=== PATIENT | male | born 1980 | race Caucasian/White ===

== ENCOUNTER 2018-05-26 11:16 | Day surgery (SDC) | payer OTHER ==
[2018-05-26] MEDS ORDERED: Sodium Chloride 0.9% 1,000 ML IV ONE (11:28)
[2018-05-26] MEDS ORDERED: Ondansetron 4 MG/2 ML SDV IVPUSH ONE (11:28)
[2018-05-26] MEDS ORDERED: Sodium Chloride 0.9% 2.5 ML Syringe FLUSH PRN ×2 (11:29→13:33)
[2018-05-26] MEDS ORDERED: Glucagon,Human Recombinant 1 MG Vial IVPUSH ONE (11:29)
[2018-05-26] MEDS ORDERED: Sodium Chloride 0.9% 10 ML Syringe FLUSH PRN ×2 (11:29→13:33)
--- NOTE | 2018-05-26 11:32 | EDM.PDOC ---
ED HPI GENERAL MEDICAL PROBLEM - General Chief Complaint: Gastrointestinal Problem Stated Complaint: FOOD STUCK IN THROAT Time Seen by Provider: 05/26/18 11:24 - History of Present Illness INITIAL COMMENTS - FREE TEXT/NARRATIVE: HISTORY AND PHYSICAL: History of present illness: The patient is a 38-year-old male who presents with a piece of roast beef stuck in his esophagus 9 PM last evening. The patient has had this happen many times before but is only required endoscopy 2 times previously last time was about 5- 6 years ago. He was told by one physician that he had strictures and would need stretching periodically and the last time he had endoscopy that surgeon disagreed and said that he should just she was food smaller. The patient denies any other symptomatology such as fevers chills chest pain shortness of breath or abdominal complaints. He has had nausea and the urge to vomit but has not actually vomited. The patient cannot tolerate anything by mouth and has been spitting since 9 PM this evening. He waited this long because he said that in the past and has if he waits it will pass spontaneously and when it did not he came here. The patient says that he has a headache she feels like he is getting dehydrated. Review of systems: As per history of present illness and below otherwise all systems reviewed and negative. Past medical history: As per history of present illness and as reviewed below otherwise noncontributory. Surgical history: As per history of present illness and as reviewed below otherwise noncontributory. Social history: No reported history of drug or alcohol abuse. Family history: As per history of present illness and as reviewed below otherwise noncontributory. Physical exam: General: Well-developed well-nourished obese man who is nontoxic and speaking clearly in the ED but is actively spitting saliva. HEENT: Atraumatic, normocephalic, negative for conjunctival pallor or scleral icterus, mucous membranes moist, throat clear, neck supple, nontender, trachea midline. Lungs: Clear to auscultation, breath sounds equal bilaterally, chest nontender. There is no wheezing or stridor Heart: S1S2, regular rate and rhythm no overt murmurs Abdomen: Soft, nondistended, nontender. Hypoactive bowel sounds Pelvis: Deferred Genitourinary: Deferred. Rectal: Deferred. Extremities: Atraumatic, full range of motion without defects or deficits Neurovascular unremarkable. Neuro: Awake, alert, oriented. Cranial nerves II through XII unremarkable. Cerebellum unremarkable. Motor and sensory unremarkable throughout. Exam nonfocal. Diagnostics: None Therapeutics: IV fluids Zofran and glucagon Toradol, Protonix 1228: The patient tells me that he does not feel any better and still feels a foreign body in his esophagus and can not tolerate his saliva. I will go ahead and contact our surgeon acquisition associate Dr. Heller. The patient and at bedside were informed that there is another OR case going on and that he would follow. The case was discussed with Dr. Heller at 1231 and she will come in to evaluate the patient . 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 Impression: Esophageal food impaction Definitive disposition and diagnosis as appropriate pending reevaluation and review of above. - Related Data Allergies Allergy/AdvReac Type Severity Reaction Status Date / Time No Known Allergies Allergy Verified 05/26/18 11:28 Home Meds: Home Meds . [No Known Home Meds] 05/26/18 [History] ED ROS GENERAL - Review of Systems Review Of Systems: ROS reveals no pertinent complaints other than HPI. ED EXAM, GENERAL - Physical Exam Exam: See Below (See dictation) Course - Vital Signs Last Recorded V/S: Last Vital Signs Temp 36.2 C 05/26/18 11:25 Pulse 107 H 05/26/18 11:25 Resp 18 05/26/18 11:25 BP 155/117 H 05/26/18 11:25 Pulse Ox 97 05/26/18 11:25 - Orders/Labs/Meds Orders: Active Orders 24 hr Category Date Time Status Lactated Ringers [Ringers, Lactated] 1,000 ml Med 05/26/18 12:45 Active IV ASDIRECTED Sodium Chloride 0.9% [Saline Flush] Med 05/26/18 11:29 Active 10 ml FLUSH ASDIRECTED PRN Sodium Chloride 0.9% [Saline Flush] Med 05/26/18 11:29 Active 2.5 ml FLUSH ASDIRECTED PRN Saline Lock Insert [OM.PC] Stat Oth 05/26/18 11:28 Ordered Medication Orders Lactated Ringer's (Ringers, Lactated) 1,000 mls @ 150 mls/hr IV ASDIRECTED THOMAS Sodium Chloride (Saline Flush) 10 ml FLUSH ASDIRECTED PRN PRN Reason: Keep Vein Open Last Admin: 05/26/18 11:54 Dose: 10 ml Sodium Chloride (Saline Flush) 2.5 ml FLUSH ASDIRECTED PRN PRN Reason: Keep Vein Open Last Admin: 05/26/18 11:54 Dose: 2.5 ml Meds: Medications Generic Name Dose Route Start Last Admin Trade Name Freq PRN Reason Stop Dose Admin Lactated Ringer's 1,000 mls @ 150 mls/hr 05/26/18 12:45 Ringers, Lactated IV ASDIRECTED THOMAS Sodium Chloride 10 ml 05/26/18 11:29 05/26/18 11:54 Saline Flush FLUSH 10 ml ASDIRECTED PRN Administration Keep Vein Open Sodium Chloride 2.5 ml 05/26/18 11:29 05/26/18 11:54 Saline Flush FLUSH 2.5 ml ASDIRECTED PRN Administration Keep Vein Open Discontinued Medications Generic Name Dose Route Start Last Admin Trade Name Freq PRN Reason Stop Dose Admin Glucagon 1 mg 05/26/18 11:29 05/26/18 11:54 Glucagen IVPUSH 05/26/18 11:30 1 mg ONETIME ONE Administration Sodium Chloride 1,000 mls @ 999 mls/hr 05/26/18 11:28 05/26/18 11:54 Normal Saline IV 05/26/18 12:28 999 mls/hr STAT ONE Administration Ketorolac Tromethamine 30 mg 05/26/18 12:33 05/26/18 12:47 Toradol IVPUSH 05/26/18 12:34 30 mg ONETIME ONE Administration Ondansetron HCl 4 mg 05/26/18 11:28 05/26/18 11:54 Zofran IVPUSH 05/26/18 11:29 4 mg ONETIME ONE Administration Pantoprazole Sodium 80 mg 05/26/18 12:41 05/26/18 12:47 Protonix Iv IVPUSH 05/26/18 12:42 80 mg .BOLUS ONE Administration Departure - Departure Time of Disposition: 12:49 Disposition: Still A Patient 30 Condition: Good Clinical Impression: Esophageal obstruction due to food impaction - Discharge Information Referrals: Noman Esquivel MD [Primary Care Provider] - Forms: ED Department Discharge - My Orders Last 24 Hours: My Active Orders 05/26/18 11:28 Saline Lock Insert [OM.PC] Stat 05/26/18 11:29 Sodium Chloride 0.9% [Saline Flush] 10 ml FLUSH ASDIRECTED PRN Sodium Chloride 0.9% [Saline Flush] 2.5 ml FLUSH ASDIRECTED PRN 05/26/18 12:45 Lactated Ringers [Ringers, Lactated] 1,000 ml IV ASDIRECTED - Assessment/Plan Last 24 Hours: My Active Orders 05/26/18 11:28 Saline Lock Insert [OM.PC] Stat 05/26/18 11:29 Sodium Chloride 0.9% [Saline Flush] 10 ml FLUSH ASDIRECTED PRN Sodium Chloride 0.9% [Saline Flush] 2.5 ml FLUSH ASDIRECTED PRN 05/26/18 12:45 Lactated Ringers [Ringers, Lactated] 1,000 ml IV ASDIRECTED
[2018-05-26] MEDS ORDERED: Ketorolac 30 MG/ML SDV IVPUSH ONE (12:33)
[2018-05-26] MEDS ORDERED: Pantoprazole 40 MG Vial IVPUSH ONE (12:41)
[2018-05-26] MEDS ORDERED: Succinylcholine 200 MG/10 ML MDV ONE (13:20)
[2018-05-26] MEDS ORDERED: Ondansetron 4 MG/2 ML SDV ONE (13:20)
[2018-05-26] MEDS ORDERED: Propofol 200 MG/20 ML SDV ONE (13:20)
[2018-05-26] MEDS ORDERED: Rocuronium 10 MG/ML 10 ML Syringe ONE (13:20)
[2018-05-26] MEDS ORDERED: fentaNYL 100 MCG/2 ML SDV ONE ×2 (13:21→13:51)
[2018-05-26] MEDS ORDERED: Midazolam 1 MG/ML 2 ML SDV ONE (13:21)
[2018-05-26] MEDS: Lactated Ringers 1,000 ML IV SCH ×2 (13:24→21:28)
--- NOTE | 2018-05-26 13:30 | PCM.HP ---
H&P History of Present Illness - General Date of Service: 05/26/18 Source of Information: Patient History Limitations: Reports: No Limitations - History of Present Illness Initial Comments - Free Text/Narative: Patient is a 38 year old male who presents with meat stuck in his esophagus. He was eating last night around 9pm when it became stuck. This is a common occurence for him. It usually passes but it didnt this time. He presented to the ER. They gave him glucagon with no improvement. He has had two EGDs with foreign body removal; one six years ago and one 12 years ago. He complains of a headache but denies shortness of breath or severe chest pain. - Related Data Allergies/Adverse Reactions: Allergies Allergy/AdvReac Type Severity Reaction Status Date / Time No Known Allergies Allergy Verified 05/26/18 11:28 Home Medications: Home Meds . [No Known Home Meds] 05/26/18 [History] Past Medical History - Infectious Disease History Infectious Disease History: Reports: Chicken Pox - Past Surgical History Other GI Surgeries/Procedures: food bolus removal x 2. Musculoskeletal Surgical History: Reports: Shoulder Surgery Social & Family History - Family History Family Medical History: Noncontributory - Tobacco Use Smoking Status *Q: Former Smoker Used Tobacco, but Quit: Yes Month/Year Tobacco Last Used: 2017 - Recreational Drug Use Recreational Drug Use: No H&P Review of Systems - Review of Systems: Review Of Systems: ROS reveals no pertinent complaints other than HPI. Exam - Exam Exam: See Below - Vital Signs Vital Signs: Last Vital Signs Temp 36.2 C 05/26/18 11:25 Pulse 107 H 05/26/18 11:25 Resp 18 05/26/18 11:25 BP 155/117 H 05/26/18 11:25 Pulse Ox 97 05/26/18 11:25 Weight: 169.3 kg - Exam General: Alert, Oriented HEENT: Conjunctiva Clear, Mucosa Moist & [place] Neck: Supple, Trachea Midline Lungs: Clear to Auscultation, Normal Respiratory Effort Cardiovascular: Regular Rate, Regular Rhythm GI/Abdominal Exam: Soft, Non-Tender, No Distention, No Mass Extremities: Normal Inspection - Problem List (1) Esophageal obstruction due to food impaction SNOMED Code(s): 318936443 ICD Code: K22.2 - ESOPHAGEAL OBSTRUCTION; T18.128A - FOOD IN ESOPHAGUS CAUSING OTHER INJURY, INITIAL ENCOUNTER Status: Acute Current Visit: Yes Problem List Initiated/Reviewed/Updated: Yes Orders Last 24hrs: Active Orders 24 hr Category Date Time Status Lactated Ringers [Ringers, Lactated] 1,000 ml Med 05/26/18 12:45 Active IV ASDIRECTED Sodium Chloride 0.9% [Saline Flush] Med 05/26/18 11:29 Active 10 ml FLUSH ASDIRECTED PRN Sodium Chloride 0.9% [Saline Flush] Med 05/26/18 11:29 Active 2.5 ml FLUSH ASDIRECTED PRN Saline Lock Insert [OM.PC] Stat Oth 05/26/18 11:28 Ordered Medication Orders Lactated Ringer's (Ringers, Lactated) 1,000 mls @ 150 mls/hr IV ASDIRECTED THOMAS Last Admin: 05/26/18 13:24 Dose: 150 mls/hr Sodium Chloride (Saline Flush) 10 ml FLUSH ASDIRECTED PRN PRN Reason: Keep Vein Open Last Admin: 05/26/18 11:54 Dose: 10 ml Sodium Chloride (Saline Flush) 2.5 ml FLUSH ASDIRECTED PRN PRN Reason: Keep Vein Open Last Admin: 05/26/18 11:54 Dose: 2.5 ml Assessment/Plan Comment:: We discussed the need for a diagnostic EGD and food disimpaction. I explained the procedure, expected gloria-operative course and risks including bleeding or perforation. He verbalized understanding and wishes to proceed.
--- NOTE | 2018-05-26 13:43 | PCM.PREANE ---
Preanesthetic Assessment - Anesthesia/Transfusion/Family Hx Anesthesia History: Prior Anesthesia Without Reaction (shoulder surgery 6 months ago: GA without problems. Has had 2 EGDs for food bolus.) Family History of Anesthesia Reaction: No - Review of Systems General: No Symptoms (morbidly obese.) Pulmonary: No Symptoms (yearly chronic bronchitis episodes. Currently clear. ) , Other (Patient says sleep study failed to confirm sleep apnea. says he stops breathing when he snores.) Cardiovascular: No Symptoms (denies any BP or heart issues. BP elevated in ER ( anxiety??)) Gastrointestinal: Difficulty Swallowing (has had 2 EGDs in the past for stuck food bolus . Probably esophageal stricture.) Neurological: No Symptoms Other: Reports: None (morbid obesity.) - Physical Assessment NPO Status Date: 05/25/18 (nothing to eat or drink since 9pm yesterday. ) NPO Status Time: 21:00 Pulse: 107 O2 Sat by Pulse Oximetry: 97 Respiratory Rate: 18 Blood Pressure: 155/117 (anxious in ER. Denies history of hypertension or heart issues) Temperature: 36.2 C Vital Signs: Last Vital Signs Temp 36.2 C 05/26/18 11:25 Pulse 107 H 05/26/18 11:25 Resp 18 05/26/18 11:25 BP 155/117 H 05/26/18 11:25 Pulse Ox 97 05/26/18 11:25 Height: 1.83 m Weight: 169.3 kg (morbidly obese) ASA Class: 3E Mental Status: Alert & Oriented x3 Airway Class: Mallampati = 2 Dentition: Reports: Normal Dentition (upper left cap in the back) Thyro-Mental Finger Breadths: 3 Mouth Opening Finger Breadths: 3 ROM/Head Extension: Full Lungs: Clear to Auscultation, Normal Respiratory Effort Cardiovascular: Regular Rate, Regular Rhythm - Lab Values: none at this time - Allergies Allergies/Adverse Reactions: Allergies Allergy/AdvReac Type Severity Reaction Status Date / Time No Known Allergies Allergy Verified 05/26/18 11:28 - Blood Blood Available: No Product(s) Available: None - Acknowledgements Anesthesia Type Planned: General Anesthesia (GA, RSI, cricoid, intubation. GA discussed with patient and . All questions answered. Consent signed and witnessed.) Pt an Appropriate Candidate for the Planned Anesthesia: Yes Alternatives and Risks of Anesthesia Discussed w Pt/Guardian: Yes Pt/Guardian Understands and Agrees with Anesthesia Plan: Yes PreAnesthesia Questionnaire - Infectious Disease History Infectious Disease History: Reports: Chicken Pox - Past Surgical History Other GI Surgeries/Procedures: food bolus removal x 2. Musculoskeletal Surgical History: Reports: Shoulder Surgery - SUBSTANCE USE Smoking Status *Q: Former Smoker Recreational Drug Use History: No - HOME MEDS Home Medications: Home Meds . [No Known Home Meds] 05/26/18 [History] - CURRENT (IN HOUSE) MEDS Current Meds: Current Medications Lactated Ringer's (Ringers, Lactated) 1,000 mls @ 150 mls/hr IV ASDIRECTED THOMAS Last Admin: 05/26/18 13:24 Dose: 150 mls/hr Lactated Ringer's (Ringers, Lactated) 1,000 mls @ 125 mls/hr IV ASDIRECTED THOMAS Sodium Chloride (Saline Flush) 10 ml FLUSH ASDIRECTED PRN PRN Reason: Keep Vein Open Last Admin: 05/26/18 11:54 Dose: 10 ml Sodium Chloride (Saline Flush) 2.5 ml FLUSH ASDIRECTED PRN PRN Reason: Keep Vein Open Last Admin: 05/26/18 11:54 Dose: 2.5 ml Sodium Chloride (Saline Flush) 10 ml FLUSH ASDIRECTED PRN PRN Reason: Keep Vein Open Sodium Chloride (Saline Flush) 2.5 ml FLUSH ASDIRECTED PRN PRN Reason: Keep Vein Open Discontinued Medications Fentanyl (Sublimaze) Confirm Administered Dose 100 mcg .ROUTE .STK-MED ONE Stop: 05/26/18 13:22 Glucagon (Glucagen) 1 mg IVPUSH ONETIME ONE Stop: 05/26/18 11:30 Last Admin: 05/26/18 11:54 Dose: 1 mg Sodium Chloride (Normal Saline) 1,000 mls @ 999 mls/hr IV STAT ONE Stop: 05/26/18 12:28 Last Admin: 05/26/18 11:54 Dose: 999 mls/hr Ketorolac Tromethamine (Toradol) 30 mg IVPUSH ONETIME ONE Stop: 05/26/18 12:34 Last Admin: 05/26/18 12:47 Dose: 30 mg Midazolam HCl (Versed 1 Mg/Ml) Confirm Administered Dose 2 mg .ROUTE .STK-MED ONE Stop: 05/26/18 13:22 Ondansetron HCl (Zofran) 4 mg IVPUSH ONETIME ONE Stop: 05/26/18 11:29 Last Admin: 05/26/18 11:54 Dose: 4 mg Ondansetron HCl (Zofran) Confirm Administered Dose 4 mg .ROUTE .STK-MED ONE Stop: 05/26/18 13:21 Pantoprazole Sodium (Protonix Iv) 80 mg IVPUSH .BOLUS ONE Stop: 05/26/18 12:42 Last Admin: 05/26/18 12:47 Dose: 80 mg Propofol (Diprivan 20 Ml) Confirm Administered Dose 200 mg .ROUTE .STK-MED ONE Stop: 05/26/18 13:21 Rocuronium [place] (Zemuron) Confirm Administered Dose 100 mg .ROUTE .STK-MED ONE Stop: 05/26/18 13:21 Succinylcholine Chloride (Quelicin) Confirm Administered Dose 200 mg .ROUTE .STK -MED ONE Stop: 05/26/18 13:21
[2018-05-26] MEDS ORDERED: Lactated Ringers 1,000 ML IV SCH (13:45)
[2018-05-26] MEDS ORDERED: Sugammadex Sodium 200 MG/2 ML VIAL ONE (16:53)
[2018-05-26] MEDS ORDERED: Albuterol 6.7 GM Inhaler INH ONE (17:03)
[2018-05-26] MEDS ORDERED: Piperacillin/Tazobactam 3.375 GM in Sodium Chloride 0.9% 50 ML IV ONE (17:10)
--- NOTE | 2018-05-26 17:16 | PCM.OPNOTE ---
- General Post-Op/Procedure Note Date of Surgery/Procedure: 05/26/18 Operative Procedure(s): EGD with food bolus disimpaction Findings: Large piece of impacted meat from 25cm-40cm. Hiatal hernia with GERD and esophagitis Pre Op Diagnosis: Esophageal obstruction due to food bolus Post-Op Diagnosis: Esophageal obstruction due to food bolus, hiatal hernia with GERD and esophagitis Anesthesia Technique: MAC Primary Surgeon: Shilpa Heller Condition: Fair
[2018-05-26] MEDS ORDERED: Acetaminophen/HYDROcodone 325-5 MG Tab PO PRN (17:32)
[2018-05-26] MEDS ORDERED: Albuterol/Ipratropium 3.0-0.5 MG/3 ML Neb Soln NEB PRN (17:34)
[2018-05-26] MEDS ORDERED: Ondansetron 4 MG/2 ML SDV IVPUSH PRN (17:35)
[2018-05-26] MEDS ORDERED: Phenol 1.4% Oral Spray 177 ML Bottle MUCMEM PRN (17:37)
--- NOTE | 2018-05-26 17:42 | PCM.POSTAN ---
POST ANESTHESIA ASSESSMENT - MENTAL STATUS Mental Status: Alert, Oriented - RESPIRATORY Respiratory Status: Respiratory Rate WNL, Airway Patent, O2 Saturation Stable, Supplemental Oxygen - CARDIOVASCULAR CV Status: Pulse Rate WNL, Blood Pressure Stable - GASTROINTESTINAL GI Status: No Symptoms - PAIN Pain Score: 0 - POST OP HYDRATION Hydration Status: Adequate & Stable Free Text/Narrative:: Due to sleep apnea and extended procedure pt staying over night for same day surgery
--- NOTE | 2018-05-26 18:37 | OR ---
SURGEON: BRANDI LAL MD DATE OF PROCEDURE: 05/26/2018 PREOPERATIVE DIAGNOSIS: Esophageal obstruction secondary to food bolus. POSTOPERATIVE DIAGNOSES: 1. Esophageal obstruction due to food bolus. 2. Hiatal hernia with gastroesophageal reflux disease and esophagitis. PROCEDURE PERFORMED: Diagnostic esophagogastroduodenoscopy with food bolus disimpaction. ANESTHESIA: General endotracheal anesthesia. FLUIDS: 2500 mL of crystalloid. ESTIMATED BLOOD LOSS: 0 mL. FINDINGS: A large piece of impacted meat from 25 cm to 40 cm, hiatal hernia with gastroesophageal reflux disease and esophagitis. INSTRUMENT USED: Olympus endoscope. EXTENT OF EXAM: To the second portion of duodenum. INDICATIONS: The patient is a 38-year-old male with a history of reflux who presents with food bolus impacted in his esophagus. This has happened to him twice before. Conservative measures have failed. We discussed the need for a diagnostic EGD with food bolus disimpaction. I explained the procedure, expected perioperative course, and risks including bleeding, infection, or damage to surrounding structures including perforation. The patient verbalized understanding and wishes to proceed. PROCEDURE IN DETAIL: The patient was brought into the OR and placed on the OR table in a beach chair position. A time-out was completed verifying the patient's name, age, date of , allergies, and procedure to be performed. The patient was laid supine and general endotracheal intubation was performed. The patient was placed back in a beach chair position, and a bite block was placed in the patient's mouth. A well lubricated endoscope was placed into the back of the throat and advanced under direct visualization into the esophagus. At approximately 25 cm, I encountered a large food bolus. Using a tripod grasper, I was able to remove approximately 5 cm worth of the meat. After this, it became solid and difficult to grasp. A biopsy forceps was then used to morcellate the food bolus. Small bites were taken until I was able to morcellate the food bolus enough to grasp it with a tripod grasper. From that point on, I used a combination of the tripod grasper and the biopsy forceps to mobilize and then remove the impacted food bolus. This morcellation was meticulous and great care was taken not to injure the esophageal mucosa itself. After 3 hours of this I was finally able to mobilize the food bolus. Once the food bolus was completely removed, I was able to advance my scope to the second portion of the duodenum. This appeared normal and a photograph was taken. The scope was then brought back into the stomach. I suctioned out any fluid that was left in the stomach. A photograph was then taken of the scope, retroflexed within the stomach. The patient was noted to have a hiatal hernia. There was no evidence of any ulceration in the gastric mucosa itself. The scope was brought into the distal esophagus. Again, I noted there to be gastric mucosa within the chest consistent with a hiatal hernia. At the GE junction and for approximately 5 cm above, the patient was noted to have severe esophagitis. Given the acute nature of inflammation, I did not take any biopsies. Photographs of this, however,were taken. The scope was removed and the procedure was terminated. The patient tolerated procedure well and was taken to PACU in stable condition. CARO CONTE /[id number] NARCISO
[2018-05-26] MEDS: Sucralfate Suspension 1 GM/10 ML Cup PO SCH ×2 (18:40→23:30)
[2018-05-27] MEDS: Sucralfate Suspension 1 GM/10 ML Cup PO SCH (05:19)
--- NOTE | 2018-05-27 07:36 | PCM48HPAN ---
Post Anesthesia Note - EVALUATION WITHIN 48HRS OF ANESTHETIC Vital Signs in Normal Range: Yes Patient Participated in Evaluation: Yes Respiratory Function Stable: Yes Airway Patent: Yes Cardiovascular Function Stable: Yes Hydration Status Stable: Yes Pain Control Satisfactory: Yes Nausea and Vomiting Control Satisfactory: Yes Mental Status Recovered: Yes
[2018-05-27] MEDS ORDERED: Pantoprazole 40 MG Tab.CR PO SCH (09:00)
--- NOTE | 2018-05-27 10:06 | PCM.SURGPN ---
- General Info Date of Service: 05/27/18 Date of Surgery/Procedure: 05/26/18 POD#: 1 Post-Op Diagnosis: hiatal hernia with gerd and esophagitis. esophageal obstruction due to food bolus Functional Status: Reports: Pain Controlled, Tolerating Diet, Ambulating, Incentive Spirometry - Review of Systems General: Reports: No Symptoms HEENT: Reports: No Symptoms Pulmonary: Reports: No Symptoms Cardiovascular: Reports: No Symptoms Gastrointestinal: Reports: No Symptoms Genitourinary: Reports: No Symptoms - Patient Data Vitals - Most Recent: Last Vital Signs Temp 36 C 05/27/18 07:00 Pulse 74 05/27/18 07:00 Resp 20 05/27/18 07:00 BP 128/81 05/27/18 07:00 Pulse Ox 94 L 05/27/18 07:00 Weight - Most Recent: 170.097 kg I&O - Last 24 Hours: Intake & Output 05/26/18 05/27/18 05/27/18 22:59 06:59 14:59 Intake Total 2500 1788 Balance 2500 1788 Med Orders - Current: Current Medications Hydrocodone Bitart/Acetaminophen ([place] 325-5 Mg) 2 tab PO Q4H PRN PRN Reason: Pain (moderate 4-6) Albuterol/Ipratropium (Duoneb 3.0-0.5 Mg/3 Ml) 3 ml NEB Q4HRRT PRN PRN Reason: Wheezing Lactated Ringer's (Ringers, Lactated) 1,000 mls @ 125 mls/hr IV ASDIRECTED [facility] Last Admin: 05/27/18 05:19 Dose: 125 mls/hr Ondansetron HCl (Zofran) 4 mg IVPUSH Q6H PRN PRN Reason: Nausea/Vomiting Pantoprazole Sodium (Protonix) 40 mg PO DAILY [facility] Last Admin: 05/27/18 08:12 Dose: 40 mg Phenol/Menthol (Chloraseptic Throat [place]) 4 ml MUCMEM Q2H PRN PRN Reason: Sore Throat Sodium Chloride (Saline Flush) 10 ml FLUSH ASDIRECTED PRN PRN Reason: Keep Vein Open Last Admin: 05/26/18 11:54 Dose: 10 ml Sodium Chloride (Saline Flush) 2.5 ml FLUSH ASDIRECTED PRN PRN Reason: Keep Vein Open Last Admin: 05/26/18 11:54 Dose: 2.5 ml Sodium Chloride (Saline Flush) 10 ml FLUSH ASDIRECTED PRN PRN Reason: Keep Vein Open Sodium Chloride (Saline Flush) 2.5 ml FLUSH ASDIRECTED PRN PRN Reason: Keep Vein Open Sucralfate (Carafate) 1 gm PO QID [facility] Last Admin: 05/27/18 05:19 Dose: 1 gm Discontinued Medications Albuterol (Proventil Hfa) Confirm Administered Dose 6.7 gm INH .STK-MED ONE Stop: 05/26/18 17:04 Fentanyl (Sublimaze) Confirm Administered Dose 100 mcg .ROUTE .STK-MED ONE Stop: 05/26/18 13:22 Fentanyl (Sublimaze) Confirm Administered Dose 100 mcg .ROUTE .STK-MED ONE Stop: 05/26/18 13:52 Glucagon (Glucagen) 1 mg IVPUSH ONETIME ONE Stop: 05/26/18 11:30 Last Admin: 05/26/18 11:54 Dose: 1 mg Sodium Chloride (Normal Saline) 1,000 mls @ 999 mls/hr IV STAT ONE Stop: 05/26/18 12:28 Last Admin: 05/26/18 11:54 Dose: 999 mls/hr Lactated Ringer's (Ringers, Lactated) 1,000 mls @ 150 mls/hr IV ASDIRECTED [facility] Last Admin: 05/26/18 21:28 Dose: 150 mls/hr Piperacillin Sod/Tazobactam (Sod 3.375 gm/ Sodium Chloride) 50 mls @ 100 mls/ hr IV ONETIME ONE Stop: 05/26/18 17:39 Last Admin: 05/26/18 17:32 Dose: 100 mls/hr Ketorolac Tromethamine (Toradol) 30 mg IVPUSH ONETIME ONE Stop: 05/26/18 12:34 Last Admin: 05/26/18 12:47 Dose: 30 mg Midazolam HCl (Versed 1 Mg/Ml) Confirm Administered Dose 2 mg .ROUTE .STK-MED ONE Stop: 05/26/18 13:22 Ondansetron HCl (Zofran) 4 mg IVPUSH ONETIME ONE Stop: 05/26/18 11:29 Last Admin: 05/26/18 11:54 Dose: 4 mg Ondansetron HCl (Zofran) Confirm Administered Dose 4 mg .ROUTE .STK-MED ONE Stop: 05/26/18 13:21 Pantoprazole Sodium (Protonix Iv) 80 mg IVPUSH .BOLUS ONE Stop: 05/26/18 12:42 Last Admin: 05/26/18 12:47 Dose: 80 mg Propofol (Diprivan 20 Ml) Confirm Administered Dose 200 mg .ROUTE .STK-MED ONE Stop: 05/26/18 13:21 Rocuronium [place] (Zemuron) Confirm Administered Dose 100 mg .ROUTE .STK-MED ONE Stop: 05/26/18 13:21 Succinylcholine Chloride (Quelicin) Confirm Administered Dose 200 mg .ROUTE .STK -MED ONE Stop: 05/26/18 13:21 Sugammadex Sodium ([place]) Confirm Administered Dose 200 mg .ROUTE .STK-MED ONE Stop: 05/26/18 16:54 - Exam General: Alert, Oriented Lungs: Normal Respiratory Effort Cardiovascular: Regular Rate GI/Abdominal Exam: Soft, Non-Tender - Problem List & Annotations (1) Esophageal obstruction due to food impaction SNOMED Code(s): 334856205 Code(s): K22.2 - ESOPHAGEAL OBSTRUCTION; T18.128A - FOOD IN ESOPHAGUS CAUSING OTHER INJURY, INITIAL ENCOUNTER Status: Acute Current Visit: Yes (2) Hiatal hernia with GERD and esophagitis SNOMED Code(s): 064417549 Code(s): K44.9 - DIAPHRAGMATIC HERNIA WITHOUT OBSTRUCTION OR GANGRENE; K21.0 - GASTRO-ESOPHAGEAL REFLUX DISEASE WITH ESOPHAGITIS Status: Acute Current Visit: Yes (3) TIMOTEO (obstructive sleep apnea) SNOMED Code(s): 29184790 Code(s): G47.33 - OBSTRUCTIVE SLEEP APNEA (ADULT) (PEDIATRIC) Status: Acute Current Visit: Yes (4) Obesity SNOMED Code(s): 661749067, 332441412 Code(s): E66.9 - OBESITY, UNSPECIFIED Status: Acute Current Visit: Yes - Problem List Review Problem List Initiated/Reviewed/Updated: Yes - My Orders Last 24 Hours: Active Orders 24 hr Category Date Time Status Patient Status [ADT] Routine ADT 05/26/18 13:33 Active Oxygen Therapy [RC] PRN Care 05/26/18 17:32 Active Pulse Oximetry [RC] CONTINUOUS Care 05/26/18 17:33 Active RT Aerosol Therapy [RC] ASDIRECTED Care 05/26/18 17:35 Active Up ad Nicole [RC] ASDIRECTED Care 05/26/18 17:32 Active Vital Signs [RC] Q4H Care 05/26/18 17:32 Active Clear Liquid Diet [DIET] Diet 05/26/18 Dinner Active Acetaminophen/HYDROcodone [[place] 325-5 MG] Med 05/26/18 17:32 Active 2 tab PO Q4H PRN Albuterol/Ipratropium [DuoNeb 3.0-0.5 MG/3 ML] Med 05/26/18 17:34 Active 3 ml NEB Q4HRRT PRN Lactated Ringers [Ringers, Lactated] 1,000 ml Med 05/26/18 13:45 Active IV ASDIRECTED Ondansetron [Zofran] Med 05/26/18 17:35 Active 4 mg IVPUSH Q6H PRN Pantoprazole [ProTONIX] Med 05/27/18 09:00 Active 40 mg PO DAILY Phenol [Chloraseptic Throat [place]] Med 05/26/18 17:37 Active 4 ml MUCMEM Q2H PRN Sodium Chloride 0.9% [Saline Flush] Med 05/26/18 11:29 Active 10 ml FLUSH ASDIRECTED PRN Sodium Chloride 0.9% [Saline Flush] Med 05/26/18 13:33 Active 10 ml FLUSH ASDIRECTED PRN Sodium Chloride 0.9% [Saline Flush] Med 05/26/18 11:29 Active 2.5 ml FLUSH ASDIRECTED PRN Sodium Chloride 0.9% [Saline Flush] Med 05/26/18 13:33 Active 2.5 ml FLUSH ASDIRECTED PRN Sucralfate [Carafate] Med 05/26/18 18:00 Active 1 gm PO QID Peripheral IV Insertion Adult [OM.PC] Routine Oth 05/26/18 13:33 Ordered Saline Lock Insert [OM.PC] Stat Oth 05/26/18 11:28 Ordered Sequential Compression Device [OM.PC] Routine Oth 05/26/18 13:33 Ordered Resuscitation Status Routine Resus Stat 05/26/18 13:33 Ordered Medication Orders Hydrocodone Bitart/Acetaminophen ([place] 325-5 Mg) 2 tab PO Q4H PRN PRN Reason: Pain (moderate 4-6) Albuterol/Ipratropium (Duoneb 3.0-0.5 Mg/3 Ml) 3 ml NEB Q4HRRT PRN PRN Reason: Wheezing Lactated Ringer's (Ringers, Lactated) 1,000 mls @ 125 mls/hr IV ASDIRECTED [facility] Last Admin: 05/27/18 05:19 Dose: 125 mls/hr Ondansetron HCl (Zofran) 4 mg IVPUSH Q6H PRN PRN Reason: Nausea/Vomiting Pantoprazole Sodium (Protonix) 40 mg PO DAILY [facility] Last Admin: 05/27/18 08:12 Dose: 40 mg Phenol/Menthol (Chloraseptic Throat [place]) 4 ml MUCMEM Q2H PRN PRN Reason: Sore Throat Sodium Chloride (Saline Flush) 10 ml FLUSH ASDIRECTED PRN PRN Reason: Keep Vein Open Last Admin: 05/26/18 11:54 Dose: 10 ml Sodium Chloride (Saline Flush) 2.5 ml FLUSH ASDIRECTED PRN PRN Reason: Keep Vein Open Last Admin: 05/26/18 11:54 Dose: 2.5 ml Sodium Chloride (Saline Flush) 10 ml FLUSH ASDIRECTED PRN PRN Reason: Keep Vein Open Sodium Chloride (Saline Flush) 2.5 ml FLUSH ASDIRECTED PRN PRN Reason: Keep Vein Open Sucralfate (Carafate) 1 gm PO QID [facility] Last Admin: 05/27/18 05:19 Dose: 1 gm Admin: 05/26/18 23:30 Dose: 1 gm Admin: 05/26/18 18:40 Dose: 1 gm - Plan Plan (Free Text/Narrative):: The patient was having obstructive sleep symptoms in PACU last night. Given his likely TIMOTEO, he was kept overnight for close monitoring. He did well and his oxygen saturations stayed in the normal range. He is having no symptoms this morning. He is tolerating a clear liquid diet without difficulty. We discussed my findings in the OR yesterday. He will need to be on protonix 40 mg daily for the next 2 months. I will see him in clinic in 2 weeks. At that time I will likely perform a barium enema to look for any esophageal dysmotility and better characterize his hiatal hernia. In 2 months I will repeat an EGD to ensure that his inflammation is healed and to take biopsies of the esophagus to rule out Barretts esophagus or eosinophilic esophagitis. For the next 5 days he should stick to a full liquid diet. After that he can resume a regular diet, but should avoid sandwiches. We discussed the risks of eating dry breads and meats. He can have these but should eat them separately, take small bites, chew thoroughly, and take sips of water in between.
== END 2018-05-27 10:55 | disposition home or self-care (01) ==
LOC: MW.ED 11:16 → MW.SDS 13:26 → MW.MS 17:32 → MW.SDS 05-27 10:55
PROVIDERS: ATTEND Surgery
DX: T18.128A Food in esophagus causing other injury, initial encounter (principal); K21.9 Gastro-esophageal reflux disease without esophagitis; K20.9 Esophagitis, unspecified; K44.9 Diaphragmatic hernia without obstruction or gangrene; E66.9 Obesity, unspecified; Z68.43 Body mass index [BMI] 50.0-59.9, adult; G47.33 Obstructive sleep apnea (adult) (pediatric); Z87.891 Personal history of nicotine dependence
CPT/HCPCS: 43247; 96361; 96374; 96375; 99285; A9270; C9113; J0330; J1610; J1885; J2250; J2405; J2543; J2704; J3010; J3490; J7040; J7050; J7120

== ENCOUNTER 2018-12-04 17:56 | Emergency (ER) | payer OTHER ==
--- NOTE | 2018-12-04 18:16 | EDM.PDOC ---
ED HPI GENERAL MEDICAL PROBLEM - General Chief Complaint: General Stated Complaint: RIGHT SIDE PAIN Time Seen by Provider: 12/04/18 17:58 - History of Present Illness INITIAL COMMENTS - FREE TEXT/NARRATIVE: HISTORY AND PHYSICAL: History of present illness: Patient is a 38-year-old white male presents 6 days status post right rib injury this occurred when he was on a rope swing [place] and had a hard fall he 's had pain with movement and deep inspiration subsequent. He denies any other trauma or concern Review of systems: As per history of present illness and below otherwise all systems reviewed and negative. Past medical history: As per history of present illness and as reviewed below otherwise noncontributory. Surgical history: As per history of present illness and as reviewed below otherwise noncontributory. Social history: No reported history of drug or alcohol abuse. Family history: As per history of present illness and as reviewed below otherwise noncontributory. Physical exam: HEENT: Atraumatic, normocephalic, pupils reactive, negative for conjunctival pallor or scleral icterus, mucous membranes moist, throat clear, neck supple, nontender, trachea midline. Lungs: Clear to auscultation, breath sounds equal bilaterally, chest tender in the right anterior axillary line crepitation. Heart: S1S2, regular, negative for clicks, rubs, or JVD. Abdomen: Soft, nondistended, nontender. Negative for masses or hepatosplenomegaly. Negative for costovertebral tenderness. Pelvis: Stable nontender. Genitourinary: Deferred. Rectal: Deferred. Extremities: Atraumatic, negative for cords or calf pain. Neurovascular unremarkable. Neuro: Awake, alert, oriented. Cranial nerves II through XII unremarkable. Cerebellum unremarkable. Motor and sensory unremarkable throughout. Exam nonfocal. Diagnostics: X-ray right ribs with chest Therapeutics: None Impression: #1 right rib injury Definitive disposition and diagnosis as appropriate pending reevaluation and review of above. RIght Ribs Pain Score (Numeric/FACES): 2 - Related Data Allergies Allergy/AdvReac Type Severity Reaction Status Date / Time No Known Allergies Allergy Verified 05/26/18 11:28 Home Meds: Home Meds Pantoprazole [ProTONIX] 40 mg PO DAILY #30 tab.cr 05/27/18 [Rx] Past Medical History - Past Health History Medical/Surgical History: Denies Medical/Surgical History Respiratory History: Reports: Sleep Apnea, Other (See Below) Other Respiratory History: reports wheezing but no diagnosed respiratory hx. probable sleep apnea but is undiagnosed Gastrointestinal History: Reports: GERD, Hiatal Hernia, Other (See Below) Other Gastrointestinal History: third EGD for foreign body extraction Genitourinary History: Reports: None - Infectious Disease History Infectious Disease History: Reports: Chicken Pox - Past Surgical History GI Surgical History: Reports: EGD Other GI Surgeries/Procedures: food bolus removal x 2. Musculoskeletal Surgical History: Reports: Shoulder Surgery Social & Family History - Family History Family Medical History: Noncontributory Endocrine/Metabolic: Reports: Diabetes, type II - Tobacco Use Smoking Status *Q: Never Smoker - Caffeine Use Caffeine Use: Reports: Soda Caffeine Use Comment: 1-2L /day - Recreational Drug Use Recreational Drug Use: No ED ROS GENERAL - Review of Systems Review Of Systems: ROS reveals no pertinent complaints other than HPI. ED EXAM, GENERAL - Physical Exam Exam: See Below (See dictation) Course - Vital Signs Last Recorded V/S: Last Vital Signs Temp 36.6 C 12/04/18 18:03 Pulse 81 12/04/18 18:03 Resp 18 12/04/18 18:03 BP 143/86 H 12/04/18 18:03 Pulse Ox 97 12/04/18 18:03 - Orders/Labs/Meds Orders: Active Orders 24 hr Category Date Time Status Ribs 2V w Chest Rt [CR] Stat Exams 12/04/18 18:00 Ordered Departure - Departure Time of Disposition: 18:15 Disposition: Home, Self-Care 01 Condition: Good Clinical Impression: Rib injury - Discharge Information Referrals: Noman Esquivel MD [Primary Care Provider] - Additional Instructions: The following information is given to patients seen in the emergency department who are being discharged to home. This information is to outline your options for follow-up care. We provide all patients seen in our emergency department with a follow-up referral. The need for follow-up, as well as the timing and circumstances, are variable depending upon the specifics of your emergency department visit. If you don't have a primary care physician on staff, we will provide you with a referral. We always advise you to contact your personal physician following an emergency department visit to inform them of the circumstance of the visit and for follow-up with them and/or the need for any referrals to a consulting specialist. The emergency department will also refer you to a specialist when appropriate. This referral assures that you have the opportunity for followup care with a specialist. All of these measure are taken in an effort to provide you with optimal care, which includes your followup. Under all circumstances we always encourage you to contact your private physician who remains a resource for coordinating your care. When calling for followup care, please make the office aware that this follow-up is from your recent emergency room visit. If for any reason you are refused follow-up, please contact the [facility] emergency department at and asked to speak to the emergency department charge nurse. Incentive spirometry hydrocodone as prescribed follow-up primary medical doctor return as needed as discussed - My Orders Last 24 Hours: My Active Orders 12/04/18 18:00 Ribs 2V w Chest Rt [CR] Stat - Assessment/Plan Last 24 Hours: My Active Orders 12/04/18 18:00 Ribs 2V w Chest Rt [CR] Stat
--- NOTE | 2018-12-04 19:38 | CR ---
INDICATION: Lower rib pain following trauma TECHNIQUE: Chest and right ribs 3 views. COMPARISON: None FINDINGS: Cardiovascular and mediastinum: Heart size and vasculature are normal in caliber and appearance. Mediastinum is within normal limits. Lungs and pleural spaces: Lungs are clear. No sign of infiltrate or mass. No sign of pleural effusion. No pneumothorax. Bones and soft tissues: Detailed oblique images of the right ribs demonstrate no fractures or bone lesions. IMPRESSION: Unremarkable chest and right ribs. Dictated by Jose Reyes MD @ 12/04/2018 7:37:02 PM Dictated by: Jose Reyes MD @ 12/04/2018 19:37:12 (Electronically Signed)
== END 2018-12-04 18:58 | disposition home or self-care (01) ==
LOC: MW.ED 17:56
DX: S29.9XXA Unspecified injury of thorax, initial encounter (principal); K21.9 Gastro-esophageal reflux disease without esophagitis; Z79.899 Other long term (current) drug therapy; W09.1XXA Fall from playground swing, initial encounter
CPT/HCPCS: 71101-26-RT; 71101-RT; 99283-25

== ENCOUNTER 2018-12-14 06:15 | Day surgery (SDC) | payer OTHER ==
[~2018-12-14 06:15] MED LIST: Lactated Ringers 1,000 ML IV SCH; Sodium Chloride 0.9% 10 ML SDV IV PRN; Sodium Chloride 0.9% 10 ML Syringe FLUSH PRN; Sodium Chloride 0.9% 2.5 ML Syringe FLUSH PRN
--- NOTE | 2018-12-14 07:10 | PCM.PREANE ---
Preanesthetic Assessment - Anesthesia/Transfusion/Family Hx Anesthesia History: Prior Anesthesia Without Reaction Family History of Anesthesia Reaction: No Transfusion History: No Prior Transfusion(s) - Review of Systems General: No Symptoms Pulmonary: No Symptoms Cardiovascular: No Symptoms Neurological: No Symptoms Other: Reports: None - Physical Assessment NPO Status Date: 12/13/18 Height: 6 ft 2 in Weight: 179.169 kg ASA Class: 4 Mental Status: Alert & Oriented x3 Airway Class: Mallampati = 2 Dentition: Reports: Normal Dentition ROM/Head Extension: Full Lungs: Clear to Auscultation, Normal Respiratory Effort Cardiovascular: Regular Rate, Regular Rhythm - Allergies Allergies/Adverse Reactions: Allergies Allergy/AdvReac Type Severity Reaction Status Date / Time No Known Allergies Allergy Verified 12/11/18 09:15 - Blood Blood Available: No - Anesthesia Plan Pre-Op Medication Ordered: None - Acknowledgements Anesthesia Type Planned: General Anesthesia Pt an Appropriate Candidate for the Planned Anesthesia: Yes Alternatives and Risks of Anesthesia Discussed w Pt/Guardian: Yes Pt/Guardian Understands and Agrees with Anesthesia Plan: Yes Additional Comments: PMH: super morbid obesity- BMI=50, 400#, had sleep study several years ago- satya was mild and cpap was not recommended. states he snores but no apnic episodes PLAN: GET PreAnesthesia Questionnaire - Past Health History Medical/Surgical History: Denies Medical/Surgical History HEENT History: Reports: None Cardiovascular History: Reports: None Respiratory History: Reports: Sleep Apnea, Other (See Below) Other Respiratory History: reports wheezing but no diagnosed respiratory hx. probable sleep apnea but is undiagnosed Gastrointestinal History: Reports: GERD, Hiatal Hernia, Other (See Below) Other Gastrointestinal History: third EGD for foreign body extraction Genitourinary History: Reports: None Musculoskeletal History: Reports: Fracture Other Musculoskeletal History: hx fx left forearm and cracked rib Neurological History: Reports: None Psychiatric History: Reports: None Endocrine/Metabolic History: Reports: Obesity/BMI 30+ Hematologic History: Reports: None Immunologic History: Reports: None Oncologic (Cancer) History: Reports: None Dermatologic History: Reports: None - Infectious Disease History Infectious Disease History: Reports: Chicken Pox - Past Surgical History Other GI Surgeries/Procedures: food bolus removal x 2. - SUBSTANCE USE Smoking Status *Q: Former Smoker Tobacco Use Within Last Twelve Months: Cigarettes - HOME MEDS Home Medications: Home Meds Pantoprazole [ProTONIX] 40 mg PO DAILY #30 tab.cr 05/27/18 [Rx] - CURRENT (IN HOUSE) MEDS Current Meds: Current Medications Lactated Ringer's (Ringers, Lactated) 1,000 mls @ 125 mls/hr IV ASDIRECTED [facility] Sodium Chloride (Saline Flush) 10 ml FLUSH ASDIRECTED PRN PRN Reason: Keep Vein Open Sodium Chloride (Saline Flush) 2.5 ml FLUSH ASDIRECTED PRN PRN Reason: Keep Vein Open Sodium Chloride (Normal Saline) 10 ml IV ASDIRECTED PRN PRN Reason: IV Use
[2018-12-14] MEDS ORDERED: Midazolam 1 MG/ML 2 ML SDV ONE (07:15)
[2018-12-14] MEDS ORDERED: Lidocaine 2% 5 ML SDV ONE (07:15)
[2018-12-14] MEDS ORDERED: fentaNYL 100 MCG/2 ML SDV ONE (07:15)
[2018-12-14] MEDS ORDERED: Propofol 200 MG/20 ML SDV ONE ×2 (07:15→08:14)
--- NOTE | 2018-12-14 08:36 | PCM.OPNOTE ---
- General Post-Op/Procedure Note Date of Surgery/Procedure: 12/14/18 Operative Procedure(s): EGD with biopsy Findings: Hiatal hernia with GERD Pre Op Diagnosis: Hiatal hernia with GERD Post-Op Diagnosis: Hiatal hernia with GERD Anesthesia Technique: General ET Tube Primary Surgeon: Shilpa Heller Condition: Good
--- NOTE | 2018-12-14 09:12 | PCM48HPAN ---
Post Anesthesia Note - EVALUATION WITHIN 48HRS OF ANESTHETIC Vital Signs in Normal Range: Yes Patient Participated in Evaluation: Yes Respiratory Function Stable: Yes Airway Patent: Yes Cardiovascular Function Stable: Yes Hydration Status Stable: Yes Pain Control Satisfactory: Yes Nausea and Vomiting Control Satisfactory: Yes Mental Status Recovered: Yes Resp Rate: 15
--- NOTE | 2018-12-14 09:12 | PCM.POSTAN ---
POST ANESTHESIA ASSESSMENT - MENTAL STATUS Mental Status: Alert, Oriented - RESPIRATORY Respiratory Status: Respiratory Rate WNL, Airway Patent, O2 Saturation Stable - CARDIOVASCULAR CV Status: Pulse Rate WNL, Blood Pressure Stable - GASTROINTESTINAL GI Status: No Symptoms - POST OP HYDRATION Hydration Status: Adequate & Stable
--- NOTE | 2018-12-14 11:16 | OR ---
SURGEON: SHILPA HELLER MD DATE OF PROCEDURE: 12/14/2018 PREOPERATIVE DIAGNOSIS: Hiatal hernia with gastroesophageal reflux disease. POSTOPERATIVE DIAGNOSIS: Hiatal hernia with gastroesophageal reflux disease. PROCEDURE PERFORMED: Diagnostic esophagogastroduodenoscopy with biopsy. PRIMARY SURGEON: Shilpa Heller MD. ANESTHESIA: General endotracheal anesthesia. INSTRUMENT USED: Olympus endoscope. EXTENT OF EXAM: To the second portion of duodenum. PREPARATION: Good. LIMITATIONS: None. INDICATIONS FOR EXAMINATION: The patient is a 38-year-old male, who presents for a repeat EGD. He was previously seen with an esophageal food obstruction due to a hiatal hernia associated with GERD and severe esophagitis. He has been on pantoprazole and his symptoms have completely resolved. The patient and I discussed the procedure; expected perioperative course; and risks including bleeding, infection, or damage to surrounding structures including perforation. The patient verbalized understanding and wishes to proceed. PROCEDURE IN DETAIL: The patient was brought into the endoscopy suite and kept on the OR cart. A time-out was completed verifying the patient's name, age, date of , allergies, and procedure to be performed. General endotracheal anesthesia was induced. The patient was then placed in a beach chair position. A bite block was placed in the patient's mouth. A well-lubricated endoscope was placed in the patient's mouth and advanced under direct visualization to the second portion of the duodenum. This appeared normal and a photograph was taken. The scope was then fully withdrawn while examining the color, texture, anatomy, and integrity the mucosa of the upper GI tract. The duodenum and stomach both appeared normal. There was no evidence of inflammation or ulceration. A photograph was taken of the second portion of the duodenum, the pylorus, as well as the GE junction. This was remarkable for a small hiatal hernia as previously noted. The scope was then brought in the distal esophagus. A photograph was taken of the Z-line. The distal esophageal mucosa appeared greatly improved. It appeared pink and healthy with no signs of inflammation or ulceration. There was no stricture at this level. Biopsies were taken approximately 1 cm above the Z-line and sent to Pathology, labeled as esophageal biopsy. The scope was then removed and the procedure terminated. The patient tolerated the procedure well and was taken to PACU in stable condition. ENDOSCOPIC DIAGNOSIS: Hiatal hernia with gastroesophageal reflux disease. RECOMMENDATIONS: Follow up in clinic in 2 weeks. CARO / INÉS /[id number]
== END 2018-12-14 09:35 | disposition home or self-care (01) ==
LOC: MW.SDS 06:15 → EEVIPCON 08:00 → MW.SDS 09:35
PROVIDERS: ATTEND Surgery
DX: K21.0 Gastro-esophageal reflux disease with esophagitis (principal); K44.9 Diaphragmatic hernia without obstruction or gangrene; G47.33 Obstructive sleep apnea (adult) (pediatric); E66.01 Morbid (severe) obesity due to excess calories; Z68.43 Body mass index [BMI] 50.0-59.9, adult; Z87.891 Personal history of nicotine dependence; Z79.899 Other long term (current) drug therapy
CPT/HCPCS: 43239; J0330; J2001; J2250; J2704; J3010; J7120; 88305

== ENCOUNTER 2020-02-01 11:09 | Emergency (ER) | payer OTHER ==
--- NOTE | 2020-02-01 12:00 | CR ---
Left ankle: 3 views left ankle were obtained. Comparison: No prior ankle study. Plantar spur is noted. Soft tissue swelling is identified. No acute fracture, dislocation or other acute bony abnormality is seen. Small bony density noted off the dorsal navicular bone which is felt to be old. Impression: 1. Findings as described above. 2. No acute bony abnormality is appreciated. Diagnostic code #2 This report was dictated in MDT
--- NOTE | 2020-02-01 12:05 | EDM.PDOC ---
ED HPI GENERAL MEDICAL PROBLEM - General Chief Complaint: Lower Extremity Injury/Pain Stated Complaint: ROLLED ANKLE Time Seen by Provider: 02/01/20 11:23 Source of Information: Reports: Patient History Limitations: Reports: No Limitations - History of Present Illness INITIAL COMMENTS - FREE TEXT/NARRATIVE: HISTORY AND PHYSICAL: History of present illness: Patient is a 39-year-old male who presents to the emergency room with complaints of left lateral ankle pain. He states last night he was walking down some stairs when he skipped a step and had "rolled his ankle" laterally. He has had pain with weightbearing and feels that the joint is very "tight" due to the swelling. He denies hitting his head or having any loss of consciousness. He denies any other extremity involvement. Offers no systemic complaints. Review of systems: As per history of present illness and below otherwise all systems reviewed and negative. Past medical history: As per history of present illness and as reviewed below otherwise noncontributory. Surgical history: As per history of present illness and as reviewed below otherwise noncontributory. Social history: See social history for further information Family history: As per history of present illness and as reviewed below otherwise noncontributory. Physical exam: General: Well developed and well nourished 39-year-old male.. Alert and orientated x 3. Nontoxic in appearance and in no acute distress. Vital signs are stable and have been reviewed by me. Nursing notes were reviewed. HEENT: Atraumatic, normocephalic, pupils equal and reactive bilaterally, negative for conjunctival pallor or scleral icterus, mucous membranes moist, TMs normal bilaterally, throat clear, neck supple, nontender, trachea midline. No drooling or trismus noted. No meningeal signs. No hot potato voice noted. Lungs: Clear to auscultation, breath sounds equal bilaterally, chest nontender. Normal work of breathing, no accessory muscles used. Heart: S1S2, regular rate and rhythm without overt murmur Abdomen: Soft, nondistended, nontender. Skin: Intact, warm, dry. No lesions or rashes noted. Hematologic: No petechiae or purpra. Mucosa appropriate color and normal nail bed color and refill. Extremities: Pain with palpation of the left lateral malleolus. Moderate soft tissue swelling is noted. Moves all extremities per self without difficulty or deficits, negative for cords or calf pain, strong pedal and pretibial pulse. Positive CMS. Neurovascular unremarkable. Neuro: Awake, alert, oriented. Cranial nerves II through XII unremarkable. Cerebellum unremarkable. Motor and sensory unremarkable throughout. Exam nonfocal. Notes: CAM walker boot (declined) and crutches for left sprained ankle. Wear over the next 3-5 days or until follow up with orthopedics. We discussed signs and symptoms that would prompt them to return to the Emergency Department. Medication, follow up and supportive care measures were reviewed and discussed. Voices understanding and is agreeable to plan of care. Denies any further questions or concerns at this time. Diagnostics: X-ray Therapeutics: Crutches Prescription: Diclofenac Impression: Left lateral ankle sprain Plan: 1. Rest, ice, elevate the affected extremity. Please use crutches as directed. 2. Tylenol and/or Ibuprofen as needed for pain management. Diclofenac has been prescribed. This is an anti-inflammatory medication (NSAID) -so do not take any additional ibuprofen, Aleve or Advil while using this medication. Make sure you take this medication with food to prevent an upset stomach. 3. Follow up with the Orthopedic provider as we discussed. Return to the ED as needed and as discussed. Definitive disposition and diagnosis as appropriate pending reevaluation and review of above. L ankle Pain Score (Numeric/FACES): 7 - Related Data Allergies Allergy/AdvReac Type Severity Reaction Status Date / Time No Known Allergies Allergy Verified 02/01/20 11:49 Home Meds: Home Meds Pantoprazole [ProTONIX] 40 mg PO DAILY #30 tab.cr 05/27/18 [Rx] Acetaminophen/HYDROcodone [[place] 325-5 MG] 2 dose PO Q6H PRN #10 tablet 02/01/20 [Rx] Diclofenac Sodium [Voltaren] 75 mg PO BIDMEALS PRN #30 tab.cr 02/01/20 [Rx] Past Medical History - Past Health History Medical/Surgical History: Denies Medical/Surgical History HEENT History: Reports: None Cardiovascular History: Reports: None Respiratory History: Reports: Other (See Below) Other Respiratory History: sleep study done, showed mild sleep apnea with no need for CPAP, was instructed to loose weight Gastrointestinal History: Reports: GERD, Hiatal Hernia, Other (See Below) Other Gastrointestinal History: EGD x3 for foreign body extraction Genitourinary History: Reports: None Musculoskeletal History: Reports: Fracture Other Musculoskeletal History: hx fx left forearm and cracked rib Neurological History: Reports: None Psychiatric History: Reports: None Endocrine/Metabolic History: Reports: Obesity/BMI 30+ Hematologic History: Reports: None Immunologic History: Reports: None Oncologic (Cancer) History: Reports: None Dermatologic History: Reports: None - Infectious Disease History Infectious Disease History: Reports: Chicken Pox Social & Family History - Family History Family Medical History: Noncontributory Endocrine/Metabolic: Reports: Diabetes, type II - Caffeine Use Caffeine Use: Reports: Soda Caffeine Use Comment: 1-2L /day Review of Systems - Review of Systems Review Of Systems: Comprehensive ROS is negative, except as noted in HPI. ED EXAM, GENERAL - Physical Exam Exam: See Below (See dictation) Course - Vital Signs Last Recorded V/S: Last Vital Signs Temp 96.8 F L 02/01/20 11:18 Pulse 84 02/01/20 11:18 Resp 18 02/01/20 11:18 BP 150/50 H 02/01/20 11:18 Pulse Ox 96 02/01/20 11:18 - Orders/Labs/Meds Orders: Active Orders 24 hr Category Date Time Status DME for Discharge [COMM] Stat Oth 02/01/20 11:58 Ordered Departure - Departure Time of Disposition: 12:08 Disposition: Home, Self-Care 01 Clinical Impression: Left ankle sprain Qualifiers: Encounter type: initial encounter Involved ligament of ankle: other ligament Qualified Code(s): S93.492A - Sprain of other ligament of left ankle, initial encounter - Discharge Information Prescriptions: Acetaminophen/HYDROcodone [[place] 325-5 MG] 2 dose PO Q6H PRN #10 tablet PRN Reason: Pain (Severe 7-10) Diclofenac Sodium [Voltaren] 75 mg PO BIDMEALS PRN #30 tab.cr PRN Reason: Pain Instructions: Ankle Sprain, [id number] Referrals: Arianne JAIME [Primary Care Provider] - Forms: ED Department Discharge Additional Instructions: The following information is given to patients seen in the emergency department who are being discharged to home. This information is to outline your options for follow-up care. We provide all patients seen in our emergency department with a follow-up referral. The need for follow-up, as well as the timing and circumstances, are variable depending upon the specifics of your emergency department visit. If you don't have a primary care physician on staff, we will provide you with a referral. We always advise you to contact your personal physician following an emergency department visit to inform them of the circumstance of the visit and for follow-up with them and/or the need for any referrals to a consulting specialist. The emergency department will also refer you to a specialist when appropriate. This referral assures that you have the opportunity for follow-up care with a specialist. All of these measure are taken in an effort to provide you with optimal care, which includes your follow-up. Under all circumstances we always encourage you to contact your private physician who remains a resource for coordinating your care. When calling for follow-up care, please make the office aware that this follow-up is from your recent emergency room visit. If for any reason you are refused follow-up, please contact the [facility] Emergency Department at and asked to speak to the emergency department charge nurse. [facility] [address] [place] [id number] [address] [id number] Thank you for choosing the [facility] emergency department in [place] for your medical needs today. It was a pleasure caring for you. Today you were seen in the emergency department for ankle pain and swelling. 1. Rest, ice, elevate the affected extremity. Please use crutches as directed. 2. Tylenol and/or Ibuprofen as needed for pain management. Diclofenac has been prescribed. This is an anti-inflammatory medication (NSAID) -so do not take any additional ibuprofen, Aleve or Advil while using this medication. Make sure you take this medication with food to prevent an upset stomach. 3. Follow up with the Orthopedic provider as we discussed. Return to the ED as needed and as discussed. Sepsis Event Note (ED) - Evaluation Sepsis Screening Result: No Definite Risk - Focused Exam Vital Signs: Vital Signs Temp Pulse Resp BP Pulse Ox 02/01/20 11:18 96.8 F L 84 18 150/50 H 96 - My Orders Last 24 Hours: My Active Orders 02/01/20 11:58 DME for Discharge [COMM] Stat - Assessment/Plan Last 24 Hours: My Active Orders 02/01/20 11:58 DME for Discharge [COMM] Stat
== END 2020-02-01 12:45 | disposition home or self-care (01) ==
LOC: MW.ED 11:09
DX: S93.492A Sprain of other ligament of left ankle, initial encounter (principal); K21.9 Gastro-esophageal reflux disease without esophagitis; E66.9 Obesity, unspecified; Z79.899 Other long term (current) drug therapy; X50.1XXA Overexertion from prolonged static or awkward postures, initial encounter
CPT/HCPCS: 73610-26-LT; 73610-LT; 99283; 99283-25

== ENCOUNTER 2023-07-05 08:15 | Day surgery (SDC) | payer OTHER ==
[2023-07-05] MEDS: Lactated Ringers 1,000 ML IV SCH (09:15)
[2023-07-05] MEDS ORDERED: fentaNYL 100 MCG/2 ML SDV ONE (11:09)
[2023-07-05] MEDS ORDERED: Midazolam 1 MG/ML 2 ML SDV ONE (11:09)
[2023-07-05] MEDS ORDERED: propofoL 50 ML ONE (11:09)
== END 2023-07-05 12:40 | disposition home or self-care (01) ==
LOC: MW.SDS 08:15
PROVIDERS: ATTEND Surgery
DX: R10.32 Left lower quadrant pain (principal); K42.9 Umbilical hernia without obstruction or gangrene; E11.9 Type 2 diabetes mellitus without complications; E66.01 Morbid (severe) obesity due to excess calories; F17.210 Nicotine dependence, cigarettes, uncomplicated; Z68.42 Body mass index [BMI] 45.0-49.9, adult; Z79.899 Other long term (current) drug therapy; Z79.84 Long term (current) use of oral hypoglycemic drugs; Z98.890 Other specified postprocedural states
CPT/HCPCS: 45378; J2250; J2704; J3010; J7120

== ENCOUNTER 2024-02-07 06:30 | Day surgery (SDC) | payer OTHER ==
[~2024-02-07 06:30] MED LIST changes: +Acetaminophen 1,000 MG in Premix Bag 1 BAG IV SCH; -Lactated Ringers 1,000 ML IV SCH; -Sodium Chloride 0.9% 10 ML SDV IV PRN; -Sodium Chloride 0.9% 10 ML Syringe FLUSH PRN; -Sodium Chloride 0.9% 2.5 ML Syringe FLUSH PRN; +ceFAZolin 2 GM in Sodium Chloride 0.9% 50 ML IV ONE
[2024-02-07] MEDS: Lactated Ringers 1,000 ML IV SCH (07:01)
[2024-02-07] MEDS: Pregabalin 75 MG Cap PO SCH (07:11)
[2024-02-07] MEDS ORDERED: Bupivacaine 0.5% 30 ML SDV ONE (07:18)
[2024-02-07] MEDS ORDERED: Ropivacaine 0.5% 5 MG/ML 30 ML SDV ONE (07:30)
[2024-02-07] MEDS ORDERED: Ketorolac 30 MG/ML SDV ONE (07:33)
[2024-02-07] MEDS ORDERED: Dexamethasone 4 MG/ML 5 ML MDV ONE (07:33)
[2024-02-07] MEDS ORDERED: Lidocaine 2% 5 ML SDV ONE (07:33)
[2024-02-07] MEDS ORDERED: fentaNYL 100 MCG/2 ML SDV ONE (07:33)
[2024-02-07] MEDS ORDERED: Ondansetron 4 MG/2 ML SDV ONE (07:33)
[2024-02-07] MEDS ORDERED: Propofol 200 MG/20 ML SDV ONE (07:33)
[2024-02-07] MEDS ORDERED: ceFAZolin 1 GM Vial ONE (08:00)
[2024-02-07] MEDS ORDERED: HYDROmorphone 1 MG/ML Syringe IVPUSH PRN (08:54)
[2024-02-07] MEDS ORDERED: Morphine 2 MG/ML SYRINGE IVPUSH PRN (08:54)
[2024-02-07] MEDS ORDERED: Albuterol 0.083% 2.5 MG/3 ML Neb Soln NEB PRN (08:54)
[2024-02-07] MEDS ORDERED: Metoclopramide 10 MG/2 ML SDV IVPUSH PRN (08:54)
[2024-02-07] MEDS ORDERED: fentaNYL 50 MCG/ML SDV IVPUSH PRN (08:54)
[2024-02-07] MEDS ORDERED: Phenylephrine HCl In 0.9% NaCl 1 MG/10 ML Syringe IVPUSH PRN (08:54)
[2024-02-07] MEDS ORDERED: Ondansetron 4 MG/2 ML SDV IVPUSH PRN (08:54)
[2024-02-07] MEDS ORDERED: droPERidol 5 MG/2 ML SDV IVPUSH PRN (08:54)
[2024-02-07] MEDS ORDERED: Naloxone 0.4 MG/ML SDV IVPUSH PRN (08:54)
== END 2024-02-07 10:45 | disposition home or self-care (01) ==
LOC: MW.SDS 06:30
PROVIDERS: ATTEND Surgery
DX: K42.9 Umbilical hernia without obstruction or gangrene (principal); E11.9 Type 2 diabetes mellitus without complications; E66.01 Morbid (severe) obesity due to excess calories; K21.9 Gastro-esophageal reflux disease without esophagitis; Z79.899 Other long term (current) drug therapy; Z68.39 Body mass index [BMI] 39.0-39.9, adult; Z91.09 Other allergy status, other than to drugs and biological substances; Z88.8 Allergy status to other drugs, medicaments and biological substances; Z87.891 Personal history of nicotine dependence
CPT/HCPCS: 49591; A9270; C1781; J0131; J0665; J0690; J1100; J1885; J2704; J2795; J3010; J7120; 00830; 64488; J2405; J3490